=== PATIENT | male | born 1965 | race Caucasian/White ===

== ENCOUNTER 2021-11-20 10:54 | Inpatient (IN) | payer OTHER ==
[~2021-11-20] VITALS: Ht 177.8 cm; Wt 124.1 kg
[~2021-11-20 10:54] MED LIST: CARV25 PO; FISH12002 PO; VERA120T21 PO; WARF5TAB40 PO
[2021-11-20 11:38] LABS: BASOPHILS % (AUTO) 0.2 % (0.0-2.0); EOSINOPHILS % (AUTO) 0.4 % (1.0-6.0); HEMATOCRIT 45.5 % (41-53); HEMOGLOBIN 15.5 g/dL (13.5-17.5); LYMPHOCYTES # (AUTO) 1.2 K/uL (1.0-4.8); LYMPHOCYTES % (AUTO) 10.4 % (22.0-44.0); MEAN CORPUSCULAR HGB CONC 34.1 G/dL (31.0-37.0); MEAN CORPUSCULAR VOLUME 88 fL (80-100); MONOCYTES # (AUTO) 1.3 K/uL (0.1-1.0); MONOCYTES % (AUTO) 11.5 % (2.0-9.0); NEUTROPHILS # (AUTO) 8.7 K/uL (1.8-7.7); NEUTROPHILS % (AUTO) 77.5 % (40.0-70.0); PLATELET COUNT (AUTO) 168 K/uL (150-450); RED BLOOD CELL COUNT(AUTO) 5.18 MIL/uL (4.50-5.90); RED CELL DISTRIBUTION WIDTH 13.9 % (11.5-14.5)
[2021-11-20 11:50] LABS: ANION GAP 10 mmol/L (8-16); CALCIUM, TOTAL 8.7 mg/dL (8.8-10.5); CARBON DIOXIDE 26 mmol/L (22-29); CHLORIDE 100 mmol/L (98-107); CREATININE 1.19 mg/dL (0.60-1.30); GLOMERULAR FILTR. RATE CALC > 60 mL/min (>60); GLUCOSE,RANDOM 127 mg/dL (70-110); POTASSIUM 4.7 mmol/L (3.5-5.1); SODIUM SERUM 136 mmol/L (136-145); UREA NITROGEN, BLOOD 22 mg/dL (7-18)
[2021-11-20] MEDS: MORPHINE SULFATE 4 MG/ML SYRINGE IVP ONE ×2 (11:51→13:23)
[2021-11-20 11:55] LABS: INR 1.1 (0.9-1.1); PROTHROMBIN TIME 12.1 SEC (9.4-11.6)
[2021-11-20 11:56] LABS: ALANINE AMINOTRANSFERASE 25 U/L (12-78); ALBUMIN 3.2 g/dL (3.4-5.0); ALKALINE PHOSPHATASE 100 U/L (46-116); ASPARTATE AMINOTRANSFERASE 14 U/L (15-37); BILIRUBIN,TOTAL 1.7 mg/dL (0.1-1.0); TOTAL PROTEIN, SERUM 7.6 g/dL (6.4-8.2)
[2021-11-20 12:04] LABS: COVID AG,FIA SOURCE NASOPHARYNGEAL
[2021-11-20] MEDS ORDERED: IOHEXOL 350 MG/ML 150 ML VIAL ONE (12:07)
[2021-11-20] MEDS ORDERED: SODIUM CHLORIDE 0.9% 100 ML ONE (12:07)
[2021-11-20] MEDS ORDERED: PIPERACILLIN/TAZO 3.375 GM/D5W 50 ML IV ONE (12:30)
[2021-11-20] MEDS ORDERED: MetroNIDAZOLE 750 MG/NACL 150 ML IV ONE (12:30)
[2021-11-20] MEDS ORDERED: SPIR-37 PO (12:41)
[2021-11-20] MEDS ORDERED: CIPR500T10 PO (12:41)
[2021-11-20] MEDS ORDERED: APIX5TAB PO (12:41)
[2021-11-20] MEDS ORDERED: ATOR40TA28 PO (12:41)
[2021-11-20] MEDS ORDERED: CARV6 PO (12:41)
[2021-11-20] MEDS ORDERED: ONDANSETRON HCL 4 MG/2 ML VIAL IVP PRN (13:00)
[2021-11-20] MEDS ORDERED: ACETAMINOPHEN 325 MG TABLET PO PRN (13:00)
[2021-11-20] MEDS ORDERED: ZOLPIDEM TARTRATE 5 MG TABLET PO PRN (13:00)
[2021-11-20] MEDS ORDERED: SODIUM CHLORIDE 0.9% 1,000 ML IV ONE (13:00)
[2021-11-20] MEDS ORDERED: MORPHINE SULFATE 2 MG/ML SYRINGE IVP PRN (13:00)
[2021-11-20] MEDS ORDERED: LIDOCAINE 1%/EPI 1:100,000 30 ML VIAL ID ONE (15:00)
[2021-11-20 15:32] VITALS: BP 149/76
[2021-11-20] MEDS: PIPERACILLIN/TAZO 3.375 GM/D5W 50 ML IV SCH (18:05)
[2021-11-20] MEDS: CARVEDILOL 6.25 MG TABLET PO SCH (20:35)
[2021-11-20 20:38] VITALS: BP 134/61
[2021-11-20] MEDS: DOCUSATE SODIUM 100 MG CAPSULE PO SCH (20:45)
[2021-11-21 05:15] VITALS: BP 110/63
[2021-11-21] MEDS: PIPERACILLIN/TAZO 3.375 GM/D5W 50 ML IV SCH ×2 (06:08)
[2021-11-21] MEDS: CARVEDILOL 6.25 MG TABLET PO SCH (07:49)
[2021-11-21] MEDS: DOCUSATE SODIUM 100 MG CAPSULE PO SCH (07:49)
[2021-11-21 08:07] VITALS: BP 120/78
[2021-11-21] MEDS ORDERED: AMOX-426 PO (08:55)
[2021-11-21] MEDS ORDERED: FAMOTIDINE 20 MG TABLET PO SCH (09:00)
== END 2021-11-21 16:06 | disposition home or self-care (01) | DRG 226 ==
LOC: EMS 10:57 → 6S 13:53
PROVIDERS: ADMIT Internal Medicine; ATTEND Internal Medicine
PROC: 0D9Q0ZZ Drainage of Anus, Open Approach (ICD-10-PCS; principal; 2021-11-20)
DX: K61.2 Anorectal abscess (principal); I49.5 Sick sinus syndrome; I10 Essential (primary) hypertension; I48.91 Unspecified atrial fibrillation; Z20.822 Contact with and (suspected) exposure to COVID-19; E66.9 Obesity, unspecified; Z79.01 Long term (current) use of anticoagulants; Z95.0 Presence of cardiac pacemaker; Z88.8 Allergy status to other drugs, medicaments and biological substances; Z82.49 Family history of ischemic heart disease and other diseases of the circulatory system; Z68.39 Body mass index [BMI] 39.0-39.9, adult
CPT/HCPCS: 74177; 80053; 85025; 85610; 87070; 87081; 93005; 99285; J2270; J2543; J3490; J7030; J7050; Q9967